=== PATIENT | female | born 1945 | race Caucasian/White ===

== ENCOUNTER → 2016-06-08 | Outpatient (CLI) | payer MEDICARE, OTHER ==
[~2016-06-08] MED LIST: ACLI400A IH; ALBU8.5H2 IH; ALPR.25T PO; ALPR0.254 PO; ALPR0.5T PO; AMLO10TA PO; ASP81TEC PO; ASPI-266 PO; AZIT250T81 PO; BISA5TAB8 PO; BUDE10.22 IH; CALC-80 PO; CLD600T PO; DULO30CA PO; DULO30CA3 PO; DULO60CA58 PO; DULO60CA6 PO; FERR325C PO; LORA10TA7 PO; LOSA100T7 PO; LOSA50TA36 PO; LRT10T PO; MAGIC1 PO; MELO-195 PO; METF-380 PO; METO-354 PO; MULT1CAP27 PO; NF-ESOM40C PO; NFPRILOC40 PO; OMEP20CA12 PO; OMG1KC PO; Oseltamivir Phosphate PO; PANT20TA PO; PANT20TA2 PO; PANT40TA PO; PANT40TA2 PO; PRAV80TA2 PO; PRED5TAB PO; SCR1T1 PO; SENN1TAB66 PO; SIMV20TA3 PO; SUCR1TAB PO; TRAM50TA2 PO; TRAZ-144 PO; TRAZ150T72 PO; TRZ100T PO; trazadone
--- OUTSIDE RECORDS SUMMARY | 2016-06-08 07:34 | XMS REPORT | Continuity of Care Document ---
Author Author [facility] Organization [facility] Address Unknown Phone Unavailable Support Name Relationship Address Phone MCDUFFIE, DONAVAN Chadd AMIN Caregiver [address] [place] [address] SHARRON MONTGOMERY MD Caregiver [address] [place] [address] ALEXIA KENNEY MD Caregiver [address] [address] GLEN ALEXANDRA Caregiver [address] [place] [address] LENORE PAPPAS Next Of Kin [address] [place] [address] Insurance Providers Payer Name Policy Number Subscriber Name Relationship Wps Medicare [id number] Nayely Pappas 18 Self / Same As Patient Enter Insurance Name [id number] Nayely Pappas 18 Self / Same As Patient Advance Directives Directive Response Recorded Date/Time Advance Directives Yes 02/02/14 12:37pm Health Care Power of Supervisor Of Instruction Yes 02/02/14 12:37pm Organ Donor Yes 02/02/14 12:37pm Resuscitation Status Full Code 02/02/14 12:37pm Problems No known problems or medical conditions. Medications Medication Dose Route Sig Days/Qty Instructions Order Date Discontinued Date Status Meloxicam (Mobic) 15 Mg PO DAILY 11/23/11 Active Pravastatin Sodium 80 Mg PO BEDTIME 11/23/11 Active Loratadine 1 Each PO DAILY 11/23/11 02/02/14 Discontinued Metformin HCl (Glucophage) 1,000 Mg PO TWICE A DAY WITH MEALS Active Losartan Potassium 100 Mg PO DAILY 11/23/11 Active Duloxetine HCl 1 Each PO DAILY 11/23/11 02/02/14 Discontinued [trazadone] 100 Mg BEDTIME 11/23/11 02/02/14 Discontinued Omeprazole 40 Mg PO DAILY 11/23/11 02/02/14 Discontinued Alprazolam 0.25 Mg PO TWICE A DAY PRN ANXIETY 11/23/11 Active Fish Oil 1,000 Mg PO TWICE A DAY 11/23/11 Active Metoclopramide HCl 10 Mg PO DAILY 11/23/11 Active Aspirin 81 Mg PO DAILY 11/23/11 Active Multivitamins 1 Each PO DAILY 11/23/11 02/02/14 Discontinued Duloxetine HCl 1 Each PO BEDTIME 11/23/11 02/02/14 Discontinued Loratadine 10 Mg PO DAILY 02/02/14 Active Trazodone HCl 100 Mg PO BEDTIME 02/02/14 Active Duloxetine HCl 60 Mg PO TWICE A DAY 02/02/14 Active Bisacodyl 5 Mg PO 2100 02/02/14 Active Amlodipine Besylate 10 Mg PO DAILY 02/02/14 Active Calcium Carbonate/Vitamin D3 1 Tab PO DAILY 02/02/14 Active Omeprazole 40 Mg PO DAILY TAKES 2 (20MG) CAPSULE 02/02/14 02/02/14 Discontinued Sucralfate 1 Gm PO FOUR TIMES DAILY 120 Qty 02/02/14 Active Pantoprazole Sodium 40 Mg PO DAILY 30 Qty 02/02/14 Active Sucralfate 1 Gm PO FOUR TIMES DAILY 120 Qty 02/02/14 Active Social History Social History Problem Response Recorded Date/Time Smoking Status Never a Smoker 02/02/2014 12:42pm Do you dip or chew tobacco? No 02/02/2014 12:42pm Query Response Start Date Stop Date Smoking Status Never a Smoker Hospital Discharge Instructions No hospital discharge instructions. Plan of Care No plan of care. Functional Status No functional status results. Allergies, Adverse Reactions, Alerts Allergen Type Severity Reaction Status Last Updated Oxycodone Allergy Unknown Active 07/05/10 acetaminophen Allergy Unknown Active 07/05/10 Immunizations Name Given Type Date of Pneumonia Vaccine 02/09/09 Historical Vital Signs Acute Vital Signs Vital Response Date/Time Temperature (Fahrenheit) 98.2 degrees F (97.6 - 99.5) Temperature (Calculated Celsius) 36.53950 degrees C (36.4 - 37.5) Temperature Source Tympanic Pulse Rate (adult) 81 bpm (60 - 90) Respiratory Rate 18 bpm (12 - 24) O2 Sat by Pulse Oximetry 94 % (88 - 100) Blood Pressure 141/73 mm Hg Pain Pain Intensity 0 Height (Feet) 5 feet Height (Calculated Centimeters) 152.488838 cm Weight (Pounds) 140 pounds Weight (Calculated Grams) 73626.932 gm Weight (Calculated Kilograms) 63.154507 kilograms Height 5 ft 0 in Weight 140 lb Body Mass Index 27.3 kg/m^2 Results Test Source Date Result Interp. Ref. Range Comments Lab Scanned Report September 10, 2012 11:51am LAB Reports [id number] - Procedures Procedure Status Date Provider(s) Esophagogastroduodenoscopy (EGD) with dilation completed 02/02/14 DONAVAN MCDUFFIE DO Anesthesia for 30 minutes completed 02/02/14 DONAVAN MCDUFFIE DO Encounters Encounter Location Date/Time Registered Clinic Via [facility] 01/28/14 7:10am
--- NOTE | 2016-06-08 13:36 | Diagnostic Imaging Report ---
Digital mammogram bilateral screening. This study was compared to the prior exams of 04/19/2015 and 01/01/2014. At this time, there are no current complaints. The current study was also evaluated with a Computer Aided Detection (CAD) system. FINDINGS: There are scattered fibroglandular densities in both breasts which could obscure a lesion. Overall, there does not appear to have been any significant change when compared to the prior exam. No primary or secondary sign of malignancy is noted. IMPRESSION: There is no radiographic evidence for malignancy. ACR BI-RADS Category 2: Benign findings. Result letter will be mailed to the patient. Note: At least 10% of breast cancer is not imaged by mammography. Dictated by: Dictated on workstation # [id number]
== END ==
LOC: RAD 07:31
PROVIDERS: ATTEND Nurse Practitioner Community Health
DX: Z12.31 Encounter for screening mammogram for malignant neoplasm of breast (principal)

== ENCOUNTER 2016-06-15 09:00 | Outpatient (CLI) | payer MEDICARE, OTHER ==
--- OUTSIDE RECORDS SUMMARY | 2016-06-14 05:53 | XMS REPORT | Continuity of Care Document ---
Author Author [facility] Organization [facility] Address Unknown Phone Unavailable Support Name Relationship Address Phone MCDUFFIE, DONAVAN Chadd MAIN Caregiver [address] [place] [address] SHARRON MONTGOMERY MD Caregiver [address] [place] [address] ALEXIA KENNEY MD Caregiver [address] [address] GLEN ALEXANDRA Caregiver [address] [place] [address] LENORE PAPPAS Next Of Kin [address] [place] [address] Insurance Providers Payer Name Policy Number Subscriber Name Relationship Wps Medicare [id number] Nayely Pappas 18 Self / Same As Patient Enter Insurance Name [id number] Nayely Pappas 16 Self / Same As Patient Advance Directives Directive Response Recorded Date/Time Advance Directives Yes 02/02/14 12:37pm Health Care Power of Painter And Body Work Yes 02/02/14 12:37pm Organ Donor Yes 02/02/14 [...] F (97.6 - 99.5) Temperature (Calculated Celsius) 36.70954 degrees C (36.4 - 37.5) Temperature Source Tympanic Pulse Rate (adult) 81 bpm (60 - 90) Respiratory Rate 18 bpm (12 - 24) O2 Sat by Pulse Oximetry 94 % (88 - 100) Blood Pressure 141/73 mm Hg Pain Pain Intensity 0 Height (Feet) 5 feet Height (Calculated Centimeters) 152.527078 cm Weight (Pounds) 140 pounds Weight (Calculated Grams) 21087.932 gm Weight (Calculated Kilograms) 63.548972 kilograms Height 5 ft 0 in Weight 140 lb Body Mass Index 27.3 kg/m^2 Results Test Source Date Result Interp. Ref. Range Comments Lab Scanned Report September 10, 2012 11:51am LAB Reports [id number] - Procedures Procedure Status Date Provider(s) Esophagogastroduodenoscopy (EGD) with dilation completed 02/02/14 DONAVAN MCDUFFIE DO Anesthesia for 30 minutes completed 02/02/14 DONAVAN MCDUFFIE DO Encounters Encounter Location Date/Time Registered Clinic Via [facility] 01/28/14 7:10am
[~2016-06-15] VITALS: Ht 152.4 cm; Wt 59.0 kg
--- OUTSIDE RECORDS SUMMARY | 2016-06-15 09:12 | XMS REPORT | Continuity of Care Document ---
Author Author [facility] Organization [facility] Address Unknown Phone Unavailable Support Name Relationship Address Phone MCDUFFIE, DONAVAN Chadd AMIN Caregiver [address] [place] [address] SHARRON MONTGOMERY MD Caregiver [address] [place] [address] ALEXIA KENNEY MD Caregiver [address] [address] GLEN ALEXANDRA Caregiver [address] [place] [address] LENORE PAPPAS Next Of Kin [address] [place] [address] Insurance Providers Payer Name Policy Number Subscriber Name Relationship Wps Medicare [id number] Nayely Pappas 16 Self / Same As Patient Enter Insurance Name [id number] Nayely Pappas 16 Self / Same As Patient Advance Directives Directive Response Recorded Date/Time Advance Directives Yes 02/02/14 12:37pm Health Care Power of Algorithm Design Engineer Yes 02/02/14 12:37pm Organ Donor Yes 02/02/14 [...] F (97.6 - 99.5) Temperature (Calculated Celsius) 36.28232 degrees C (36.4 - 37.5) Temperature Source Tympanic Pulse Rate (adult) 81 bpm (60 - 90) Respiratory Rate 18 bpm (12 - 24) O2 Sat by Pulse Oximetry 94 % (88 - 100) Blood Pressure 141/73 mm Hg Pain Pain Intensity 0 Height (Feet) 5 feet Height (Calculated Centimeters) 152.536635 cm Weight (Pounds) 140 pounds Weight (Calculated Grams) 32645.932 gm Weight (Calculated Kilograms) 63.155248 kilograms Height 5 ft 0 in Weight 140 lb Body Mass Index 27.3 kg/m^2 Results Test Source Date Result Interp. Ref. Range Comments Lab Scanned Report September 10, 2012 11:51am LAB Reports [id number] - Procedures Procedure Status Date Provider(s) Esophagogastroduodenoscopy (EGD) with dilation completed 02/02/14 DONAVAN MCDUFFIE DO Anesthesia for 30 minutes completed 02/02/14 DONAVAN MCDUFFIE DO Encounters Encounter Location Date/Time Registered Clinic Via [facility] 01/28/14 7:10am
== END 2016-06-15 09:30 ==
LOC: PREOP 09:00
PROVIDERS: ATTEND Surgery
DX: Z01.818 Encounter for other preprocedural examination (principal); Z80.0 Family history of malignant neoplasm of digestive organs; K22.70 Barrett's esophagus without dysplasia

== ENCOUNTER 2016-06-18 08:34 | Day surgery (SDC) | payer MEDICARE, OTHER ==
[~2016-06-18] VITALS: Ht 152.4 cm; Wt 59.0 kg
--- OUTSIDE RECORDS SUMMARY | 2016-06-18 08:37 | XMS REPORT | Continuity of Care Document ---
Author Author [facility] Organization [facility] Address Unknown Phone Unavailable Support Name Relationship Address Phone MCDUFFIE, DONAVAN Chadd AMIN Caregiver [address] [place] [address] SHARRON MONTGOMERY MD Caregiver [address] [place] [address] ALEXIA KENNEY MD Caregiver [address] [address] GLEN ALEXANDRA Caregiver [address] [place] [address] LENORE PAPPAS Next Of Kin [address] [place]ST[place] [address] Insurance Providers Payer Name Policy Number Subscriber Name Relationship Wps Medicare [id number] Nayely Pappas 16 Self / Same As Patient Enter Insurance Name [id number] Nayely Pappas 16 Self / Same As Patient Advance Directives Directive Response Recorded Date/Time Advance Directives Yes 02/02/14 12:37pm Health Care Power of Customs House Broker Yes 02/02/14 12:37pm Organ Donor Yes 02/02/14 [...] F (97.6 - 99.5) Temperature (Calculated Celsius) 36.06344 degrees C (36.4 - 37.5) Temperature Source Tympanic Pulse Rate (adult) 81 bpm (60 - 90) Respiratory Rate 18 bpm (12 - 24) O2 Sat by Pulse Oximetry 94 % (88 - 100) Blood Pressure 141/73 mm Hg Pain Pain Intensity 0 Height (Feet) 5 feet Height (Calculated Centimeters) 152.803862 cm Weight (Pounds) 140 pounds Weight (Calculated Grams) 18213.932 gm Weight (Calculated Kilograms) 63.015460 kilograms Height 5 ft 0 in Weight 140 lb Body Mass Index 27.3 kg/m^2 Results Test Source Date Result Interp. Ref. Range Comments Lab Scanned Report September 10, 2012 11:51am LAB Reports [id number] - Procedures Procedure Status Date Provider(s) Esophagogastroduodenoscopy (EGD) with dilation completed 02/02/14 DONAVAN MCDUFFIE DO Anesthesia for 30 minutes completed 02/02/14 DONAVAN MCDUFFIE DO Encounters Encounter Location Date/Time Registered Clinic Via [facility] 01/28/14 7:10am
--- OUTSIDE RECORDS SUMMARY | 2016-06-18 08:37 | XMS REPORT | Continuity of Care Document ---
Author Author [facility] Organization [facility] Address Unknown Phone Unavailable Support Name Relationship Address Phone MCDUFFIE, DONAVAN Chadd AMIN Caregiver [address] [place] [address] SHARRON MONTGOMERY MD Caregiver [address] [place] [address] ALEXIA KENNEY MD Caregiver [address] [address] GLEN ALEXANDRA Caregiver [address] [place] [address] LENORE PAPPAS Next Of Kin [address] [place] [address] Insurance Providers Payer Name Policy Number Subscriber Name Relationship Wps Medicare [id number] Nayely Pappas 16 Self / Same As Patient Enter Insurance Name [id number] Nayely Pappas 16 Self / Same As Patient Advance Directives Directive Response Recorded Date/Time Advance Directives Yes 02/02/14 12:37pm Health Care Power of Loaf Counter Yes 02/02/14 12:37pm Organ Donor Yes 02/02/14 [...] F (97.6 - 99.5) Temperature (Calculated Celsius) 36.24370 degrees C (36.4 - 37.5) Temperature Source Tympanic Pulse Rate (adult) 81 bpm (60 - 90) Respiratory Rate 18 bpm (12 - 24) O2 Sat by Pulse Oximetry 94 % (88 - 100) Blood Pressure 141/73 mm Hg Pain Pain Intensity 0 Height (Feet) 5 feet Height (Calculated Centimeters) 152.083259 cm Weight (Pounds) 140 pounds Weight (Calculated Grams) 92209.932 gm Weight (Calculated Kilograms) 63.053015 kilograms Height 5 ft 0 in Weight 140 lb Body Mass Index 27.3 kg/m^2 Results Test Source Date Result Interp. Ref. Range Comments Lab Scanned Report September 10, 2012 11:51am LAB Reports [id number] - Procedures Procedure Status Date Provider(s) Esophagogastroduodenoscopy (EGD) with dilation completed 02/02/14 DONAVAN MCDUFFIE DO Anesthesia for 30 minutes completed 02/02/14 DONAVAN MCDUFFIE DO Encounters Encounter Location Date/Time Registered Clinic [facility] 01/28/14 7:10am
[2016-06-18] MEDS ORDERED: fentaNYL INJECTION 100 MCG/2 ML AMP IVP PRN (09:00)
[2016-06-18] MEDS ORDERED: FLUMAZENIL (ROMAZICON) 0.1 MG/ML 5 ML VIAL INJ PRN (09:00)
[2016-06-18] MEDS ORDERED: HURRICAINE EXT TUBE (BENZOCAINE) XX PRN (09:00)
[2016-06-18] MEDS ORDERED: MIDAZOLAM 2 MG/2 ML (VERSED) VIAL IVP PRN (09:00)
[2016-06-18] MEDS ORDERED: NS IV 500 ML 500 ML IV PRN (09:00)
[2016-06-18] MEDS ORDERED: NALOXONE 0.4 MG/ML 1 ML (NARCAN) VIAL IVP PRN (09:00)
[2016-06-18 09:13] VITALS: BP 141/87
[2016-06-18] MEDS ORDERED: MIDAZOLAM 2 MG/2 ML (VERSED) VIAL ONE (09:30)
[2016-06-18] MEDS ORDERED: PROPOFOL INJECTION 50 ML IV ONE (09:30)
--- NOTE | 2016-06-18 10:07 | Pre-Op Note & Conscious Sedat ---
Pre-Operative Progress Note H&P Reviewed The H&P was reviewed, patient examined and no changes noted. Date H&P Reviewed: Jun 18, 2016 Time H&P Reviewed: 08:45 Pre-Op Diagnosis: GERD. Screening. Family history of colon cancer Conscious Sedation Pre-Proced ASA Class: 3 Airway Mallampati Classification: (reno-sparks appropriate class) I. II. III, IV Lungs Heart ASA score ASA 1: a normal healthy patient ASA 2: a patient with a mild systemic disease (mid diabetes, controlled hypertension, obesity ASA 3: a patient with a severe systemic disease that limits activity (angina , COPD, prior Myocardial infarction) ASA 4: a patient with an incapacitating disease that is a constant threat to life (CHF, renal failure) ASA 5: a moribund patient not expected to survive 24 hrs. (ruptured aneurysm) ASA 6: a declared brain patient whose organs are being harvested. For emergent operations, add the letter E after the classification Grade 2 Sedation Plan: Discussed options with patient/fam Note The patient is an appropriate candidate to undergo the planned procedure, sedation, and anesthesia. The patient immediately re-assessed prior to indication. CARL RAMIREZ MD Jun 18, 2016 10:07 am
--- NOTE | 2016-06-18 10:08 | Progress Note-Post Operative ---
Post-Operative Progess Note Pre-Operative Diagnosis GERD. Screening. Family history of colon cancer Post-Operative Diagnosis EGD: grade 2 esophagitis. Distal gastritis Colonoscopy: sigmoid diverticula. Hemorrhoids Post-Op Procedure Note Date of Procedure: Jun 18, 2016 Name of Procedure: EGD with antral biopsy. Biopsy of GE junction Colonoscopy to cecum Anesthesia Type conscious sedation Specimen(s) collected antral mucosa and the mucosa of GE junction CARL RAMIREZ MD Jun 18, 2016 10:08 am
--- NOTE | 2016-06-18 10:09 | Discharge Inst-Simple/Standard ---
Discharge Inst-Standard Discharge Medications New, Converted or Re-Newed RX: Other Patient Instructions/Follow Up Plan of Care/Instructions/FU: repeat colonoscopy in 5 years. Follow up with her primary Activity as Tolerated: Yes Discharge Diet: No Restrictions CARL RAMIREZ MD Jun 18, 2016 10:09 am
[2016-06-18 10:30] VITALS: BP 166/80
[2016-06-18 11:00] VITALS: BP 152/94
[2016-06-18 11:30] VITALS: BP 152/94
--- NOTE | 2016-06-19 12:04 | PROCEDURE REPORT ---
PROCEDURE PHYSICIAN: CARL RAMIREZ DATE OF PROCEDURE: 06/18/2016 PROCEDURE: 1. Upper GI endoscopy with biopsy. 2. Screening colonoscopy. SURGEON: Chay. INDICATION FOR THE PROCEDURE: This lady came in for an endoscopic assessment of symptoms of reflux disease with a previous history of Bedoya's esophagus and for screening colonoscopy. She reported a positive family history of colon cancer in her father and a brother. Informed consent was obtained after reviewing the procedures in detail. DESCRIPTION OF PROCEDURE: 1. UPPER GI ENDOSCOPY/ANTRAL BIOPSY/BIOPSY OF GASTROESOPHAGEAL JUNCTION: She was placed in left lateral decubitus position and her vital signs were monitored. Conscious sedation was achieved using propofol infusion by our WIRE BRUSH OPERATOR. The flexible gastroscope was introduced down the esophagus, past the stomach, into the proximal duodenum. FINDINGS: ESOPHAGUS: Grade 2 esophagitis. Biopsy was obtained for Bedoya's changes. STOMACH: Distal gastritis in a streaky fashion. There was no ulceration. Biopsy was obtained for Helicobacter status. DUODENUM: Normal. She tolerated the procedure well and was turned around in preparation for colonoscopy. IMPRESSION: 1. Previous history of Bedoya's esophagus. 2. Grade 2 esophagitis. 3. Biopsies pending. 4. Helicobacter status pending as well. 2. COLONOSCOPY: Examination of the perianal area revealed grade 3 hemorrhoids. Digital rectal examination was unremarkable. The colonoscope was then introduced in the rectum and advanced with difficulty to the cecum. It was then withdrawn slowly and the mucosa examined in a systematic fashion. FINDINGS: 1. Very few sigmoid diverticula. 2. No polyps were found. She tolerated the procedure well and was taken back to the nursing area in a stable condition. IMPRESSION: 1. Screening colonoscopy. 2. No polyps. 3. Positive family history. 4. Recommend repeating in 5 years. Job ID: [id number] Dictated Date: 06/18/2016 10:13:53 Supply Officer Date: 06/19/2016 11:57:32 / estefany BURT
== END 2016-06-18 11:30 | disposition home or self-care (01) ==
LOC: ENDO 08:34
PROVIDERS: ATTEND Surgery
DX: Z12.11 Encounter for screening for malignant neoplasm of colon (principal); K20.9 Esophagitis, unspecified; K57.90 Diverticulosis of intestine, part unspecified, without perforation or abscess without bleeding; Z80.0 Family history of malignant neoplasm of digestive organs
CPT/HCPCS: 43239; G0105; 88305; 88342

== ENCOUNTER → 2016-08-09 | Outpatient (CLI) | payer MEDICARE, OTHER ==
--- NOTE | 2016-08-09 14:28 | Diagnostic Imaging Report ---
PA and lateral views of the chest. COMPARISON: 03/08/2015. INDICATION: Dyspnea and reflux. Cough. FINDINGS: Minimal opacity in the right lung base is likely related to atelectasis. The heart size is normal. No effusion or pneumothorax. The mediastinum and donovan appear unremarkable. IMPRESSION: Minimal right basilar atelectasis. Dictated by: Dictated on workstation # [id number]
== END ==
LOC: RAD 09:41
PROVIDERS: ATTEND Internal Medicine Critical Care Medicine
DX: K21.9 Gastro-esophageal reflux disease without esophagitis (principal); R05 Cough; R06.02 Shortness of breath
CPT/HCPCS: 71020

== ENCOUNTER → 2016-08-22 | Outpatient (CLI) | payer MEDICARE, OTHER ==
[~2016-08-22] MED LIST changes: +RT-ALBUTEROL SULF 2.5 MG/3 ML PRE-MIX VIAL IH ONE
== END ==
LOC: RT 09:01
PROVIDERS: ATTEND Internal Medicine Critical Care Medicine
DX: R05 Cough (principal); R06.02 Shortness of breath; K21.9 Gastro-esophageal reflux disease without esophagitis
CPT/HCPCS: 94060; 94640; 94726; 94729

== ENCOUNTER → 2016-12-02 | Outpatient (CLI) | payer MEDICARE, OTHER ==
[~2016-12-02] MED LIST changes: -RT-ALBUTEROL SULF 2.5 MG/3 ML PRE-MIX VIAL IH ONE
--- NOTE | 2016-12-02 13:26 | Diagnostic Imaging Report ---
INDICATION: Left wrist injury. FINDINGS: Three views of the left wrist show generalized osteopenia. There is no acute fracture or dislocation. There are degenerative changes of the first carpometacarpal joint. IMPRESSION: No acute abnormality is seen in the left wrist. Dictated by: Dictated on workstation # [id number]
== END ==
LOC: RAD 12:38
PROVIDERS: ATTEND Family Medicine
DX: S60.212A Contusion of left wrist, initial encounter (principal); X58.XXXA Exposure to other specified factors, initial encounter; Y99.8 Other external cause status
CPT/HCPCS: 73110

== ENCOUNTER → 2017-01-07 | Outpatient (CLI) | payer MEDICARE, OTHER | LOC: CARD 09:09 | PROVIDERS: ATTEND Internal Medicine Cardiovascular Disease | DX: I65.23 Occlusion and stenosis of bilateral carotid arteries (principal); R07.89 Other chest pain; R06.02 Shortness of breath; I10 Essential (primary) hypertension; E78.2 Mixed hyperlipidemia | CPT/HCPCS: 93306 ==

== ENCOUNTER → 2017-01-09 | Outpatient (CLI) | payer MEDICARE, OTHER ==
[~2017-01-09] VITALS: Ht 152.4 cm; Wt 60.3 kg
[~2017-01-09] MED LIST changes: +CATHETER FLUSH 10 ML SYR IV PRN
[2017-01-09 09:47] VITALS: BP 128/63
--- NOTE | 2017-01-10 16:35 | STRESS TEST ---
DATE OF SERVICE: 01/09/2017 EXERCISE MYOVIEW STRESS TEST REPORT REFERRING PHYSICIAN: Niya Diaz Baseline heart rate is 99. Baseline blood pressure 128/63. Baseline EKG is sinus rhythm with no ischemic changes. In summary, the patient was injected with 10.76 mCi of technetium-99 Myoview and the resting images were obtained. Then, the patient started exercising with the baseline heart rate, blood pressure and EKG mentioned above. At minute 4, patient was injected with 31.2 mCi of technetium-99 Myoview. She was able to finish a total of 5 minutes on standard Bar protocol, achieving maximum heart rate of 140, which is 95% of maximum expected heart rate. With peak exercise level, EKG did not show any acute ischemic changes, mild abnormality was noted. Blood pressure was 219/63. During recovery, heart rate and blood pressure returned to baseline. EKG returned to baseline. The resting and stress images were reviewed and compared in the short axis, horizontal long axis, and vertical long axis views. Review of the images showed small left ventricle with no significant ischemia or infarction. SSS is 3, SDS 2, TID value 1.0. On the gated images, the left ventricle appeared to be normal size with normal contractility, calculated ejection fraction 77%. CONCLUSION: 1. Fair exercise tolerance, a total of 5 minutes on standard Bar protocol, total of 7 METS achieving 95% of maximum expected heart rate. 2. Severe hypertensive response to exercise returned to baseline during recovery. 3. Minimal and diagnostic EKG changes with exercise returned to baseline during recovery. 4. No ischemia or infarction on SPECT images. 5. Small left ventricular size with normal contractility, calculated ejection fraction 77%. Job ID: [id number] DocumentID: [id number] Dictated Date: 01/09/2017 14:17:27 Party Chief Date: 01/09/2017 14:57:39 Dictated By: SHARRON MONTGOMERY MD
== END ==
LOC: CARD 07:53
PROVIDERS: ATTEND Internal Medicine Cardiovascular Disease
DX: I65.23 Occlusion and stenosis of bilateral carotid arteries (principal); R07.89 Other chest pain; R06.02 Shortness of breath; I10 Essential (primary) hypertension; E78.2 Mixed hyperlipidemia
CPT/HCPCS: 78452; 93017

== ENCOUNTER → 2021-05-18 | Outpatient (CLI) | payer MEDICARE ==
[~2021-05-18] MED LIST changes: +CALC-774 PO; -CLD600T PO; +HOLD METFORMIN - RECEIVED CONTRAST 20 ML VIAL IV SCH; +IOHEXOL 350 MG/ML 100 ML (OMNIPAQUE 350) VIAL IV ONE; -LOSA50TA36 PO; +LOSA50TA63 PO; +NS 100 ML (IVPB) BAG IV ONE; +SIMV20TA26 PO; -SIMV20TA3 PO
[2021-05-18 12:21] LABS: CREATININE SERUM 0.73 MG/DL (0.60-1.30)
--- NOTE | 2021-05-18 14:54 | Diagnostic Imaging Report ---
PROCEDURE: CT neck soft tissue with contrast. TECHNIQUE: Multiple contiguous axial images were obtained through the neck after the administration of contrast. Auto Exposure Controls were utilized during the CT exam to meet ALARA standards for radiation dose reduction. INDICATION: Pneumothorax for 2 months, neck soreness. There are no prior CT neck examinations available for comparison. There is generalized thickening of the soft tissues in the supraglottic portion of the larynx (axial image 15 of 93, coronal image 30 of 74 and sagittal 40 of 78).. It is difficult to identify discrete mass in this area but the possibility that there is a mass lesion should certainly be considered. Direct visualization would be recommended. There is no other mass or adenopathy identified. The parotid and submandibular glands appear symmetrical and within normal limits. The thyroid gland is not enlarged and homogeneous. The carotid arteries were difficult to visualize and they were partially obscured by artifact related to the patient's dental fillings. There is no high-grade central stenosis noted. The lung apices are generally clear. The intracranial contents where visualized show no sign of an acute abnormality. The bone windows are unremarkable for fracture or for destructive lesion. There is mild reversal of the normal lordosis of the cervical spine. This may be secondary to muscle spasm and/or positioning. There is also moderate degenerative disc and bony disease at C3-C4, C4-C5 and C5-C6. IMPRESSION: 1. There is generalized thickening of the soft tissues in the supraglottic region. There is no discrete mass identified but the possibility that there is an underlying neoplastic process should certainly be considered. Recommendations as above. 2. There is no other mass or adenopathy noted. 3. There is no sign of an acute abnormality. Dictated by: Dictated on workstation # [id number]
== END ==
LOC: RAD 11:40
PROVIDERS: ATTEND Otolaryngology Otolaryngology/Facial Plastic Surgery
DX: R49.0 Dysphonia (principal); R13.10 Dysphagia, unspecified
CPT/HCPCS: 36415; 70491; 82565; 84520

== ENCOUNTER → 2021-05-18 | Outpatient (CLI) | payer MEDICARE ==
[~2021-05-18] MED LIST changes: -CATHETER FLUSH 10 ML SYR IV PRN; -HOLD METFORMIN - RECEIVED CONTRAST 20 ML VIAL IV SCH; -IOHEXOL 350 MG/ML 100 ML (OMNIPAQUE 350) VIAL IV ONE; -NS 100 ML (IVPB) BAG IV ONE
--- NOTE | 2021-05-18 14:40 | Diagnostic Imaging Report ---
EXAMINATION: CT chest without contrast. TECHNIQUE: Multiple contiguous axial images were obtained through the chest without the use of intravenous contrast. All CT scans use one or more of the following dose optimizing techniques: automated exposure control, MA and/or KvP adjustment based on patient size and exam type or iterative reconstruction. HISTORY: SOB COMPARISON: None available. FINDINGS: Thyroid: The thyroid is normal. Mediastinum: Heart size is normal without significant pericardial effusion. The aorta is normal in caliber. No suspicious lymphadenopathy. Lungs and airways: There is scarring within the lung apices. There is no consolidation, pleural effusion, or pneumothorax. There is linear atelectasis or scarring in the lower lungs. There is a 0.4 cm medial left upper lobe pulmonary nodule (series 3 image 62). Additional smaller nodules are present. The airways are normal. Upper abdomen: There is diffuse hypoattenuation of the liver compatible with hepatic steatosis. There is cholelithiasis. Musculoskeletal: No suspicious osseous lesion or compression fracture. IMPRESSION: 1. No acute abnormality in the chest. 2. Subcentimeter pulmonary nodules measuring up to 0.4 cm. If patient is low risk for malignancy, no follow-up is needed. If patient is high risk, a follow-up CT of the chest in 6 to 12 months could be performed. Dictated by: Dictated on workstation # [id number]
== END ==
LOC: RAD 12:45
PROVIDERS: ATTEND Pediatrics
DX: R91.8 Other nonspecific abnormal finding of lung field (principal); R06.02 Shortness of breath
CPT/HCPCS: 71250

== ENCOUNTER → 2023-01-10 | Outpatient (RCR) | payer MEDICARE, OTHER ==
[~2023-01-10] MED LIST changes: +IRON SUCROSE 200 MG/10 ML VIAL IV SCH
[2023-01-10 10:30] VITALS: BP 135/73
== END ==
LOC: SDC 09:59
PROVIDERS: ATTEND Pediatrics
DX: D50.9 Iron deficiency anemia, unspecified (principal)
CPT/HCPCS: 96365

== ENCOUNTER 2023-01-15 11:09 | Outpatient (RCR) | payer MEDICARE, OTHER ==
[~2023-01-15 11:09] MED LIST changes: -IRON SUCROSE 200 MG/10 ML VIAL IV SCH
[2023-01-15] MEDS ORDERED: IRON SUCROSE 200 MG/10 ML VIAL IV SCH (11:30)
[2023-01-15 11:55] VITALS: BP 129/68
== END 2023-02-09 | disposition home or self-care (01) ==
LOC: SDC 11:09
PROVIDERS: ATTEND Pediatrics
DX: D50.9 Iron deficiency anemia, unspecified (principal)
CPT/HCPCS: 96365

== ENCOUNTER 2023-02-26 11:07 | Outpatient (RCR) | payer MEDICARE, OTHER ==
[2023-02-19 10:45] VITALS: BP 132/62
[2023-02-19] MEDS: FERRIC CARBOXYMALTOSE INJ 750 MG in NS (IVPB) 250 ML 250 ML IV SCH (11:04)
[2023-02-26] MEDS: FERRIC CARBOXYMALTOSE INJ 750 MG in NS (IVPB) 250 ML 250 ML IV SCH (11:35)
[2023-02-26 11:49] VITALS: BP 139/91
== END 2023-03-12 | disposition home or self-care (01) ==
LOC: SDC 11:07
PROVIDERS: ATTEND Family Medicine
DX: D50.9 Iron deficiency anemia, unspecified (principal)
CPT/HCPCS: 96365

== ENCOUNTER → 2023-04-16 | Outpatient (CLI) | payer MEDICARE, OTHER | LOC: CARD 13:22 | PROVIDERS: ATTEND Internal Medicine Cardiovascular Disease | DX: I11.9 Hypertensive heart disease without heart failure (principal); I25.10 Atherosclerotic heart disease of native coronary artery without angina pectoris | CPT/HCPCS: 93306 ==